=== PATIENT | female | born 1980 | race Caucasian/White ===

== ENCOUNTER 2021-08-18 10:20 | Outpatient (REF) | payer MEDICAID, SELFPAY ==
--- NOTE | ~2021-08-18 | MM_ITS ---
EXAMINATION: MM DIAGNOSTIC DIGITAL BREAST TOMOSYNTHESIS, BILATERAL US DIAGNOSTIC ULTRASOUND BREAST, BILATERAL CLINICAL INFORMATION: 41-year-old with dermal discharge inferior left areola for one month. No nipple discharge. No erythema. Intermittent right breast pain. No prior breast imaging. Family history breast cancer, maternal aunt. The lifetime risk of breast cancer based on the Tyrer-Cuzick Model is 11%. COMPARISON: None (current study represents initial baseline exam). TECHNIQUE: Digital breast tomosynthesis is performed in both the craniocaudal and mediolateral oblique views along with computer-aided detection (CAD). Synthesized 2D images are generated from the tomosynthesis. Additional spot right ML x2 views are obtained. Ultrasound left breast is targeted to the areolar and periareolar region. Ultrasound right breast is targeted to the inferior posterior breast. Grayscale imaging and color Doppler are performed without and with harmonics. FINDINGS: There are scattered areas of fibroglandular density (ACR BI-RADS breast composition Category b). There is mild bilateral nipple retraction. There is no skin thickening or coarsening of the Julio's ligaments. Left breast parenchymal pattern is unremarkable. There is no significant mass or architectural abnormality. Neither breast shows abnormal calcifications. Right breast has parenchymal asymmetry posterior 5:00 position. No mass or architectural abnormality on additional views. Ultrasound demonstrates no cystic or solid mass. No architectural abnormality. No skin thickening or focal duct ectasia. No ultrasound correlate for parenchymal asymmetry right breast. Results are discussed with the patient at time of visit, using an harpoon engagement planning operator. MM/MM tomosynthesis diagnostic BI IMPRESSION: Left: -Unremarkable mammography and targeted ultrasound. -No inflammatory changes. No abscess. Right: -Probable benign parenchymal asymmetry posterior 5:00. -No ultrasound correlate. ASSESSMENT: BI-RADS 3: Probably Benign RECOMMENDATION: 1. Patient's recent dermal discharge on left and patient's breast pain may be managed based on the clinical impression as needed. 2. Short interval six-month follow-up right diagnostic mammography recommended for probable benign parenchymal asymmetry posterior 5:00 right breast. This patient's information was entered into a reminder system with a target due date for their next mammogram.
== END 2021-08-18 10:21 | disposition home or self-care (01) ==
LOC: HO.MAMMO 10:20
PROVIDERS: PCP Registered Nurse; Visit Provider Registered Nurse
DX: N64.3 Galactorrhea not associated with childbirth (principal); L98.8 Other specified disorders of the skin and subcutaneous tissue; Z80.3 Family history of malignant neoplasm of breast
CPT/HCPCS: 76642; 77062; 77066